=== PATIENT | female | born 1955 | race Asian ===

== ENCOUNTER 2022-10-11 17:00 | Emergency (ER) | payer OTHER ==
[~2022-10-11] VITALS: Ht 162.6 cm; Wt 72.6 kg
--- NOTE | 2022-10-11 17:06 | NUR ---
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
--- NOTE | 2022-10-11 17:20 | NUR ---
BLOOD COLLECTED AND SEND TO LAB
--- NOTE | 2022-10-11 17:36 | NUR ---
X RAY AT BED SIDE
[2022-10-11] MEDS ORDERED: AMLO10TA4 PO (17:40)
[2022-10-11] MEDS ORDERED: GABA300C PO (17:40)
[2022-10-11] MEDS ORDERED: CARB200T PO (17:40)
[2022-10-11] MEDS ORDERED: LISI40TA13 PO (17:40)
[2022-10-11] MEDS ORDERED: HYDR12.55 PO (17:40)
[2022-10-11 17:48] LABS: BASOPHILS % (AUTO) 0.5 % (0.0-2.0); EOSINOPHILS % (AUTO) 0.9 % (0.0-6.0); HEMATOCRIT 39 % (33-45); HEMOGLOBIN 12.9 g/dL (11.5-14.8); LYMPHOCYTES # (AUTO) 1.1 K/uL (0.8-4.8); LYMPHOCYTES % (AUTO) 25.6 % (20.0-44.0); MEAN CORPUSCULAR HGB CONC 33 g/dl (31.0-36.0); MEAN CORPUSCULAR VOLUME 87 fL (82-100); MONOCYTES # (AUTO) 0.5 K/uL (0.1-1.30); MONOCYTES % (AUTO) 11.2 % (2.0-12.0); NEUTROPHILS # (AUTO) 2.8 K/uL (1.8-8.9); NEUTROPHILS % (AUTO) 61.8 % (43.0-81.0); PLATELET COUNT (AUTO) 260 K/uL (150-450); RED BLOOD CELL COUNT(AUTO) 4.49 MIL/uL (4.0-5.2); WHITE BLOOD COUNT (AUTO) 4.5 K/uL (4.3-11.0)
[2022-10-11 17:59] LABS: CALCIUM, SERUM 8.5 mg/dL (8.5-10.1); CARBON DIOXIDE 26 mmol/L (21-32); CHLORIDE 101 mmol/L (98-107); CREATININE 0.9 mg/dL (0.6-1.3); GLUCOSE 168 mg/dL (74-106); POTASSIUM 3.3 mmol/L (3.5-5.1); SODIUM SERUM 134 mmol/L (136-145); UREA NITROGEN, BLOOD 15 mg/dL (7-18)
[2022-10-11 18:05] LABS: ALANINE AMINOTRANSFERASE 31 U/L (12-78); ALBUMIN 3.4 g/dL (3.4-5.0); ALKALINE PHOSPHATASE 103 U/L (46-116); ASPARTATE AMINOTRANSFERASE 19 U/L (15-37); BILIRUBIN,DIRECT 0.1 mg/dL (0.0-0.2); BILIRUBIN,TOTAL 0.4 mg/dL (0.2-1.0); TOTAL PROTEIN, SERUM 6.5 g/dL (6.4-8.2)
--- NOTE | 2022-10-11 18:34 | NUR ---
michael collected and sent to lab
--- NOTE | 2022-10-11 18:37 | NUR ---
CALLED [facility] [phone] DR. VALENTE WILL CALL BACK.
--- NOTE | 2022-10-11 19:12 | NUR ---
PATIENT IS WENT TO WASH ROOM.
--- NOTE | 2022-10-11 19:12 | NUR ---
PATIENT HANDED OVER TO ELSI FOR SHAUNA.
--- NOTE | 2022-10-11 19:49 | NUR ---
PT ACCEPTED TO [facility] BY DR EDMOND. # FOR REPORT [phone]. [facility] ETA [id number]
--- NOTE | 2022-10-11 19:59 | NUR ---
REPORT GIVEN TO [facility]
--- NOTE | 2022-10-11 20:37 | NUR ---
REPORT GIVEN TO ISAI BREAUX 143
--- NOTE | 2022-10-11 20:42 | NUR ---
PATIENT BEING TRANSPORTED TO [facility] VIA [facility] [id number]
[2022-10-11 20:43] VITALS: BP 159/90; TEMP 98; O2SAT 97
== END 2022-10-11 20:52 | disposition short-term general hospital (02) ==
LOC: ER 17:07
DX: R55 Syncope and collapse (principal); I10 Essential (primary) hypertension; Z20.822 Contact with and (suspected) exposure to COVID-19; Z79.899 Other long term (current) drug therapy; Z88.0 Allergy status to penicillin
CPT/HCPCS: 99285; 71045; 87426; 93005; 85025; 80048; 80076; 36415; 84484; C9803